=== PATIENT | male | born 1970 | race Caucasian/White ===

== ENCOUNTER → 2019-11-28 16:23 | Outpatient (CLI) | payer OTHER, SELFPAY ==
[2019-11-28 18:39] LABS: ALB/GLOB Ratio 0.9 RATIO (0.9-2.4); AST(SGOT) 62 U/L (15-37); Alanine Aminotransfer ALT/SGPT 75 U/L (16-61); Albumin, Serum 3.5 g/dL (3.2-5.0); Alkaline Phosphatase 89 U/L (45-117); Anion Gap 7 (5-15); BUN 11 mg/dL (7-18); BUN/Creat Ratio 13.2 RATIO (10-20); Calcium,Total 8.6 mg/dL (8.5-10.1); Chloride 104 mmol/L (98-107); Creatinine, Serum 0.84 mg/dL (0.70-1.30); EST Glomerular Filtration Rate 105 mL/min (>60); Est Glom Filt Rate - Afr Amer 127 mL/min (>60); Globulin 3.8 g/dL (2.2-4.2); Glucose 95 mg/dL (74-106); Potassium 3.6 mmol/L (3.5-5.1); Protein, Total 7.3 g/dL (6.4-8.2); Sodium Level 136 mmol/L (136-145)
== END ==
PROVIDERS: PCP Family Medicine; Visit Provider Family Medicine
DX: F10.10 Alcohol abuse, uncomplicated (principal)
CPT/HCPCS: 36415; 80053

== ENCOUNTER → 2022-03-15 | Outpatient (CLI) | payer OTHER, SELFPAY ==
[2022-03-15 19:23] LABS: AST(SGOT) 27 U/L (15-37); Alanine Aminotransfer ALT/SGPT 51 U/L (16-61); Albumin, Serum 3.5 g/dL (3.2-5.0); Alkaline Phosphatase 81 U/L (45-117); Anion Gap 10 (5-15); BUN 10 mg/dL (7-18); BUN/Creat Ratio 9.4 RATIO (10-20); Bilirubin, Direct 0.15 mg/dL (0.00-0.30); Calcium,Total 8.8 mg/dL (8.5-10.1); Chloride 99 mmol/L (98-107); Cholesterol 192 mg/dL (200); Creatinine, Serum 1.06 mg/dL (0.70-1.30); EST Glomerular Filtration Rate 79 mL/min (>60); Est Glom Filt Rate - Afr Amer 95 mL/min (>60); Globulin 3.7 g/dL (2.2-4.2); Glucose 197 mg/dL (74-106); High Density Lipoprotein 58 mg/dL; Potassium 3.9 mmol/L (3.5-5.1); Protein, Total 7.2 g/dL (6.4-8.2); Sodium Level 133 mmol/L (136-145); Triglycerides 311 mg/dL; Very Low Density Lipoprotein 62 mg/dL (5-40)
== END | disposition home or self-care (01) ==
LOC: MFPLAB 15:27
PROVIDERS: PCP Family Medicine; Visit Provider Family Medicine
DX: I10 Essential (primary) hypertension (principal); R79.89 Other specified abnormal findings of blood chemistry
CPT/HCPCS: 36415; 80048; 80061; 80076

== ENCOUNTER 2023-05-21 22:25 | Emergency (ER) | payer OTHER, SELFPAY ==
[2023-05-21 22:27] VITALS: BP 128/87; PULSE 73; RESP 30; TEMP -17.7; TEMP 0; O2SAT 94
[2023-05-21] MEDS: Etomidate 20 MG/10 ML Vial IV (22:32)
[2023-05-21] MEDS: Succinylcholine Chloride 200 MG/10 ML SYRINGE 100 MG IV (22:34)
--- NOTE | 2023-05-21 22:36 | EKG12_ITS ---
Test Reason : Blood Pressure : / mmHG Vent. Rate : 070 BPM Atrial Rate : 070 BPM P-R Int : 182 ms QRS Dur : 090 ms QT Int : 394 ms P-R-T Axes : 065 -14 020 degrees QTc Int : 425 ms Normal sinus rhythm Inferior infarct , age undetermined Abnormal ECG Confirmed by PURNIMA SIMMONS, PRANAV ([id number]), editor farm journal DORINA ABREU ([id number]) on 05/24/2023 9:33:16 AM Referred By: Confirmed By:PRANAV FELTON MD
--- NOTE | 2023-05-21 22:37 | CT_ITS ---
EXAM: CT CHEST, ABDOMEN AND PELVIS WITH INTRAVENOUS CONTRAST CLINICAL INDICATION: trauma -- TRAUMA ONLY: IV Contrast. Dont wait for creatinine TECHNIQUE: Helically acquired images were obtained of the chest, abdomen and pelvis with intravenous contrast. This CT exam was performed using one or more of the following dose reduction techniques: automated exposure control, adjustment of the mA and/or kV according to patient size, and/or use of iterative reconstruction technique. CONTRAST: 100 ML ISOVUE 370 RADIATION DOSE: CTDIvol = 25.94 mGy, DLP = 2452.22 mGy-cm COMPARISON: No relevant prior studies available. FINDINGS: CHEST: LUNGS AND PLEURAL SPACES: Bibasilar dependent atelectasis. No mass. No pleural effusion or thickening. No pneumothorax. No pulmonary contusion. HEART: Mild cardiomegaly. No pericardial effusion. MEDIASTINUM: Unremarkable. No mediastinal or hilar adenopathy. Esophagus is unremarkable. No hiatal hernia. No mediastinal hematoma. THYROID: Unremarkable. No thyroid lesions. ABDOMEN: LIVER: Hepatomegaly. GALLBLADDER AND BILE DUCTS: Unremarkable. No calcified gallstones. No gallbladder distention or wall edema. No intra- or extrahepatic biliary ductal dilation. PANCREAS: Unremarkable. No focal cystic or solid mass. SPLEEN: Unremarkable. Normal size without focal cystic or solid mass. ADRENALS: Unremarkable. No nodules. KIDNEYS AND URETERS: Unremarkable. Normal renal size and position. No hydronephrosis. STOMACH AND BOWEL: Unremarkable. No stomach or bowel distention. No focal inflammatory change. PELVIS: APPENDIX: No evidence of acute appendicitis. BLADDER: Vasquez catheter in the bladder. REPRODUCTIVE: Unremarkable as visualized. No mass. CHEST, ABDOMEN and PELVIS: INTRAPERITONEAL SPACE: Unremarkable. No free air. No hemoperitoneum. RETROPERITONEAL SPACE: Unremarkable. No blood in the retroperitoneum. BONES/JOINTS: Unremarkable. No suspicious lytic or blastic abnormality. No fracture. SOFT TISSUES: Unremarkable. No discrete abdominal or pelvic wall hernia. VASCULATURE: Unremarkable. Aorta is non-dilated. No aortic dissection. No obvious central pulmonary embolism although this study was not performed with the pulmonary embolism protocol. No aortic injury. LYMPH NODES: Unremarkable. No enlarged lymph nodes. TUBES, LINES AND DEVICES: Endotracheal tube with tip extending into the origin of the left mainstem bronchus. Enteric tube extending into the stomach. CT/CT Chest, Abd, Pel w/Contrast IMPRESSION: 1. Endotracheal tube with tip extending into the origin of the left mainstem bronchus. Consider pulling back 3 to 4 cm. 2. No acute injuries identified in the chest abdomen or pelvis. Electronically Signed: Chuck Clayton MD at 23:34 EST ,
--- NOTE | 2023-05-21 22:37 | CT_ITS ---
We are attempting to reach an attending provider to discuss findings. An addendum with communication details will be sent when the communication is complete. EXAM: CT HEAD WITHOUT INTRAVENOUS CONTRAST CLINICAL INDICATION: Trauma TECHNIQUE: Multiple axial images were obtained of the head without intravenous contrast. This CT exam was performed using one or more of the following dose reduction techniques: automated exposure control, adjustment of the mA and/or kV according to patient size, and/or use of iterative reconstruction technique. RADIATION DOSE: CTDIvol = 44.99 mGy, DLP = 914.22 mGy-cm COMPARISON: No relevant prior studies available. FINDINGS: BRAIN AND EXTRA-AXIAL SPACES: Acute subdural hematoma overlying the right cerebral hemisphere measuring up to 1.6 cm in thickness. There is associated mass effect causing 9 mm midline shift to the left. Early dilation of the left lateral ventricle consistent with entrapment. There is also subarachnoid hemorrhage collecting in the basilar cisterns and the left sylvian fissure primarily. No evidence of acute infarct. There is preservation of the jason/white matter interface. Posterior fossa structures are unremarkable. No hydrocephalus. BONES/JOINTS: Unremarkable. No discrete lytic or blastic abnormalities. SOFT TISSUES: Left parietal scalp swelling. SINUSES: Mild ethmoid and sphenoid sinus disease. MASTOID AIR CELLS: Unremarkable. Clear. ORBITS: Visualized globes, extraocular muscles, optic nerves and retrobulbar fat appear unremarkable. CT/Brain/Head without Contrast IMPRESSION: 1. Acute subdural hematoma overlying the right cerebral hemisphere measuring up to 1.6 cm in thickness. 2. There is associated mass effect causing 9 mm midline shift to the left. Early dilation of the left lateral ventricle consistent with entrapment. 3. There is also subarachnoid hemorrhage collecting in the basilar cisterns and the left sylvian fissure primarily. Electronically Signed: Chuck Clayton MD at 23:32 EST ,
--- NOTE | 2023-05-21 22:37 | CT_ITS ---
EXAM: CT CERVICAL SPINE WITHOUT INTRAVENOUS CONTRAST CLINICAL INDICATION: Trauma TECHNIQUE: Helically acquired images were obtained of the cervical spine without intravenous contrast. 2D reformatted images were reviewed. This CT exam was performed using one or more of the following dose reduction techniques: automated exposure control, adjustment of the mA and/or kV according to patient size, and/or use of iterative reconstruction technique. RADIATION DOSE: CTDIvol = 29.43 mGy, DLP = 641.19 mGy-cm COMPARISON: No relevant prior studies available. FINDINGS: VERTEBRAE: Unremarkable. No fracture. No traumatic subluxation. No discrete lytic or blastic abnormality. Normal alignment. Normal craniocervical junction and cervicothoracic junction. DISCS/SPINAL CANAL/NEURAL FORAMINA: Degenerative changes of the intervertebral discs. No critical stenosis. SOFT TISSUES: Unremarkable. No prevertebral soft tissue swelling. LYMPH NODES: Unremarkable. No cervical adenopathy. LUNG APICES: Unremarkable as visualized. Clear. CT/Spine Cervical without Contras IMPRESSION: 1. No acute injuries identified involving the cervical spine. 2. Degenerative changes. Electronically Signed: Chuck Clayton MD at 23:35 EST ,
--- NOTE | 2023-05-21 22:38 | ED.RN ---
Pt lifting arms and attempting to pull at lines with potential to pull out et tube, etc., restraints applied.
[2023-05-21 22:42] VITALS: BP 132/87; PULSE 73; RESP 12; O2SAT 97
[2023-05-21 22:43] LABS: Absolute Lymphocyte Count 5.39 X10^3/uL (0.83-4.51); Absolute Neutrophil Count 6.5 X10^3/uL (2.0-7.7); Basophil# 0.17 X10^3/uL; Basophil% 1.3 % (0-1); Eosinophil# 0.26 X10^3/uL; Eosinophils% 1.9 % (0-5); Hematocrit 41.2 % (40-54); Hemoglobin 13.5 g/dL (13.0-16.5); Lymphocyte # 5.39 X10^3/ul (0.83-4.51); Mean Corp Hgb Conc 32.8 g/dL (32-36); Mean Corpuscular Hgb 28.7 pg (27.0-32.0); Mean Corpuscular Volume 87.7 fL (80-94); Mean Platelet Vol. 7.9 fl (6.2-12.0); Monocyte# 0.89 X10^3/uL; Monocyte% 6.6 % (0-10); NRBC Flagged by Analyzer 0 % (0-5); Neutrophil # 6.46 X10^3/uL (2.7-7.7); POSITIVE DIFFERENTIAL YES; POSITIVE MORPHOLOGY YES; Platelet Count 394 K/mm3 (150-450); RBC Distribution Width CV 12.7 % (11.6-14.6); White Blood Count 13.5 K/mm3 (4.4-11.0)
--- NOTE | 2023-05-21 22:43 | EDS_ITS ---
HPI HPI - Fall History of Present Illness Chief Complaint: Fall Informant: patient Occured/Mechanism Occurred: Today Narrative Narrative: Patient presents after a fall down 15 steps. Friends report he came over and was intoxicated. They heard a loud noise and found him lying at the bottom of the basement steps. He was lying facedown on EMS arrival with blood coming from his nose. He had snoring respirations throughout their transport. His O2 sat was initially 88% and in the low to mid 90s on a nonrebreather. [facility] Medical History (Updated 05/21/23 @ 23:[address] Consuelo Fallon MD) Borderline diabetes Hypertension Obstructive sleep apnea Home Medications amlodipine 10 mg tablet 10 mg PO DAILY 05/21/23 [History Last Taken Unknown] lisinopril 40 mg tablet 40 mg PO DAILY 05/21/23 [History Last Taken Unknown] Allergy/AdvReac Type Severity Reaction Status Date / Time No Known Allergies Allergy Verified 05/21/23 23:31 Social History Smoking Status: Current every day smoker tobacco type: cigarettes ROS ROS ED Review of Systems ROS Unobtainable: due to endotracheal tube and due to mental status EXAM Physical Exam Const Vital Signs: 05/21/23 22:27 05/21/23 22:36 05/21/23 22:42 Temperature 0 F L Temperature Source Temporal Pulse Rate 73 73 Respiratory Rate 30 H 12 Respiratory Pattern Tachypnea Blood Pressure 128/87 H 132/87 H Blood Pressure Mean 100 102 Pulse Ox 94 97 Oxygen Delivery Method Non-Rebreather Mechanical Ventilator Fraction of Inspired Oxygen (FIO2) 05/21/23 22:30 05/21/23 23:00 05/21/23 23:15 Temperature Temperature Source Pulse Rate 80 72 Respiratory Rate 14 17 Respiratory Pattern Tachypnea Blood Pressure 116/81 H Blood Pressure Mean 92 Pulse Ox 97 99 Oxygen Delivery Method Non-Rebreather Mechanical Ventilator Fraction of Inspired Oxygen (FIO2) 60 05/22/23 00:30 05/21/23 23:30 05/22/23 00:00 Temperature Temperature Source Pulse Rate 72 82 Respiratory Rate 16 27 H Respiratory Pattern Blood Pressure 120/82 H 96/76 Blood Pressure Mean 94 83 Pulse Ox 100 100 Oxygen Delivery Method Fraction of Inspired Oxygen (FIO2) 50 05/22/23 00:30 Temperature Temperature Source Pulse Rate 78 Respiratory Rate 15 Respiratory Pattern Blood Pressure 120/82 H Blood Pressure Mean 94 Pulse Ox Oxygen Delivery Method Fraction of Inspired Oxygen (FIO2) Positive obese Nutritional Appearance: obese HEENT HEENT Narrative: Small abrasion to the left anabaptism. Blood from the nares bilaterally. Eyes Eyes Narrative: Pupils 2 to 3 mm bilaterally not reactive at this time. Chest Wall inspection of chest normal and palpation of chest normal Resp normal respiratory effort Resp Narrative: Transmitted upper airway sounds. Cardio regular rate and regular rhythm GI non-tender Palpation: soft Neuro Neuro Narrative: Patient with spontaneous respirations. He will move the right upper extremity. He does not withdraw lower extremities or left upper extremity to painful stimulus. Skin Skin Narrative: Abrasion to left anabaptism. MDM MDM MDM Narrative Medical decision making narrative: Second IV line initiated on patient arrival. Patient given 20 mg of IV etomidate and intubated on first attempt with glide scope. Tube visualized passing through cords and good fogging noted in the tube. Good color change noted with bilateral breath sounds. No air noted over the Epigastrium. Trauma orders initiated. I discussed the patient's condition with family. [facility] are on diversion to trauma at this time and we are attempting to contact [facility] in [place]. Lab Data Attestation: I reviewed the patient's lab results. Labs: Laboratory Results - last 24 hr 05/21/23 05/21/23 22:30 22:45 WBC 13.5 H RBC 4.70 Hgb 13.5 Hct 41.2 MCV 87.7 MCH 28.7 MCHC 32.8 RDW Std Deviation 41.0 RDW Coeff of [place] 12.7 Plt Count 394 MPV 7.9 Immature Gran % (Auto) 2.200 H Neut % (Auto) 48.0 Lymph % (Auto) 40.0 [place] % (Auto) 6.6 Eos % (Auto) 1.9 Baso % (Auto) 1.3 H Absolute Neuts (auto) 6.5 Absolute Lymphs (auto) 5.39 H Nucleated RBC % 0 Differential Comment SEE COMMENT Atypical Lymphocytes 1+ Reactive Lymphocytes RARE Platelet Estimate ADEQUATE RBC Morphology N CHROM Anisocytosis RARE PT 12.5 INR 0.9 APTT 27.2 Sodium 135 L Potassium 3.2 L Chloride 101 Carbon Dioxide 22.0 Anion Gap 12 BUN 12 Creatinine 0.86 Estim Creat Clear Calc 0.00 Est GFR (MDRD) Af Amer 121 Est GFR (MDRD) Non-Af 100 BUN/Creatinine Ratio 14.0 Glucose 164 H Calcium 8.5 Total Bilirubin 0.10 L Direct Bilirubin 0.07 AST 31 ALT 47 Alkaline Phosphatase 82 Total Creatine Kinase 189 Total Protein 7.2 Albumin 3.6 Globulin 3.6 Triglycerides 197 Urine Opiates Screen NEGATIVE Urine Methadone Screen NEGATIVE Ur Barbiturates Screen NEGATIVE Ur Phencyclidine Scrn NEGATIVE Ur Amphetamines Screen NEGATIVE MDMA (Ecstasy) Screen NEGATIVE U Benzodiazepines Scrn NEGATIVE Urine Cocaine Screen NEGATIVE U Cannabinoids Screen POSITIVE H Ur Drug Screen Comment Ethyl Alcohol 262.0 Radiography Diagnostic Testing: Clinical Impression(s) from Imaging Studies Brain CT 05/21/23 22:37 IMPRESSION: 1. Acute subdural hematoma overlying the right cerebral hemisphere measuring up to 1.6 cm in thickness. 2. There is associated mass effect causing 9 mm midline shift to the left. Early dilation of the left lateral ventricle consistent with entrapment. 3. There is also subarachnoid hemorrhage collecting in the basilar cisterns and the left sylvian fissure primarily. Electronically Signed: Chuck Clayton MD at 23:32 EST Reading Location ID and State: [facility] / [place] Tel , Service support , ADDENDUM: 05/21/23 2344 IMPRESSION: 1. Acute subdural hematoma overlying the right cerebral hemisphere measuring up to 1.6 cm in thickness. 2. There is associated mass effect causing 9 mm midline shift to the left. Early dilation of the left lateral ventricle consistent with entrapment. 3. There is also subarachnoid hemorrhage collecting in the basilar cisterns and the left sylvian fissure primarily. N.B. : The above Results were Read Back by Chuck Clayton MD to Dr. Consuelo Fallon MD, and understanding confirmed on 05/21/2023 23:37:22 (ET). Electronically Signed: Chuck Clayton MD at 23:32 EST , Cervical Spine CT 05/21/23 22:37 IMPRESSION: 1. No acute injuries identified involving the cervical spine. 2. Degenerative changes. Electronically Signed: Chuck Clayton MD at 23:35 EST , Chest/Abdomen/Pelvis CT 05/21/23 22:37 IMPRESSION: 1. Endotracheal tube with tip extending into the origin of the left mainstem bronchus. Consider pulling back 3 to 4 cm. 2. No acute injuries identified in the chest abdomen or pelvis. Electronically Signed: Chuck Clayton MD at 23:34 EST , EKG Initial EKG: Attestation: I personally reviewed and interpreted this EKG as follows: Interpretation: Sinus Rhythm (Sinus at 70 with no acute ischemia.) Treatment and Re-Evaluation Narrative: CBC was white count elevated at 13.5 with normal differential. Hemoglobin normal at 13.5. Coags unremarkable. Chemistry studies normal. LFTs normal. Total CK is 189. EtOH is 262. EKG is sinus rhythm with no acute ischemia. Patient sent for CT scan of the head, C-spine, chest, abdomen, and pelvis. CT scan of the head reveals acute subdural hematoma overlying the right cerebral hemisphere measuring up to 1.6 cm in thickness. There is an associated mass effect causing 9 mm midline shift to the left. Early dilation of the left lateral ventricle consistent with entrapment noted. There is also a subarachnoid hemorrhage collecting in the basilar cisterns in the left sylvian fissure. CT scan of the C-spine reveals no fracture. CT scan of the chest, abdomen, and pelvis reveals endotracheal tube with the tip in the origin of the left mainstem bronchus. No acute injuries identified in the chest, abdomen, or pelvis. Patient has been given IV Keppra. Head of bed is elevated his respiratory rate was slightly increased on the ventilator. He has not required sedation at this time. Patient has been accepted at [facility] and we are awaiting ground critical care transport for transfer. We received a call back from [facility] transport. They stated that after calling around it appears [facility] is open to trauma. I spoke with the trauma surgeon there and she has accepted the patient in transfer. [facility] will still transport but transport time will be faster to [place] for definitive treatment. We did discuss the patient's findings. She did request 500 mL of 3% saline be given given his CT head findings. Patient's vital signs have remained stable while in the emergency room. Critical Care Time Critical Care Time: Yes Critical care time (excluding procedures): 30-74 minutes (45 minutes), Discussing w/Patient &/or Family/Director Market Intelligence, Discussing w/Consultants, Arranging Admission or Transfer and Performing Direct Patient Care at Bedside Discharge Plan Triage Chief Complaint: Fall ED Provider: Consuelo Fallon Dx/Rx/DC Orders Clinical Impression: Alcohol intoxication, Respiratory failure, Subdural hemorrhage, Fall Prescriptions: No Action amlodipine 10 mg tablet 10 mg PO DAILY Patient Comments: take 1 tablet by mouth once daily lisinopril 40 mg tablet 40 mg PO DAILY Patient Comments: take 1 tablet by mouth once daily Primary Care Provider: Fernando Davila Referrals: Fernando Davila MD [Primary Care Provider] - Disposition Disposition: Acute Care Hospital Discharge Location: [facility]
[2023-05-21 22:56] LABS: International Normalized Ratio 0.9; Prothrombin Time (Protime)PT. 12.5 SECONDS (11.7-14.9)
[2023-05-21 22:57] LABS: Partial Thromboplast Time 27.2 Seconds (24.1-36.2)
[2023-05-21 22:59] LABS: Differential Indicated SCAN CRITERIA MET
[2023-05-21 23:00] VITALS: PULSE 80; RESP 14; O2SAT 97
[2023-05-21 23:00] LABS: AST(SGOT) 31 U/L (15-37); Alanine Aminotransfer ALT/SGPT 47 U/L (16-61); Albumin, Serum 3.6 g/dL (3.2-5.0); Alkaline Phosphatase 82 U/L (45-117); Anion Gap 12 (5-15); BUN 12 mg/dL (7-18); Bilirubin, Direct 0.07 mg/dL (0.00-0.30); Calcium,Total 8.5 mg/dL (8.5-10.1); Chloride 101 mmol/L (98-107); Creatinine, Serum 0.86 mg/dL (0.70-1.30); EST Glomerular Filtration Rate 100 mL/min (>60); Est Glom Filt Rate - Afr Amer 121 mL/min (>60); Globulin 3.6 g/dL (2.2-4.2); Glucose 164 mg/dL (74-106); Potassium 3.2 mmol/L (3.5-5.1); Protein, Total 7.2 g/dL (6.4-8.2); Sodium Level 135 mmol/L (136-145)
[2023-05-21 23:04] LABS: CPK Total, Creatine Kinase 189 U/L (39-308); Triglycerides 197 mg/dL
[2023-05-21] MEDS: levETIRAcetam IV 1,000 MG/100 ML BAG 400 MG IV (23:11)
[2023-05-21] MEDS: 0.9% Normal Saline (1000mL) 1,000 ML 150 ML IV (23:12)
[2023-05-21 23:15] VITALS: BP 116/81; PULSE 72; RESP 17; O2SAT 99
[2023-05-21 23:30] VITALS: BP 120/82; PULSE 72; RESP 16; O2SAT 100
[2023-05-21 23:34] LABS: Atypical Lymphocyte 1+ %
[2023-05-21 23:35] LABS: Anisocytosis RARE; Platelet Estimate ADEQUATE (ADEQ); Reactive Lymphocyte RARE; Red Cell Morphology N CHROM NORMAL (NORM C&C)
[2023-05-22] VITALS: BP 96/76; PULSE 82; RESP 27; O2SAT 100
[2023-05-22] MEDS: Propofol 10MG/Ml 1,000 MG/100 ML Bottle 7.59999999999999964 MG CONT INF (00:05)
[2023-05-22 00:12] LABS: Amphetamine Urine VISTA NEGATIVE (<1000 ng/mL); Barbiturate Urine VISTA NEGATIVE (< 200 ng/mL); Benzodiazepine Urine VISTA NEGATIVE (< 200 ng/mL); Cocaine Urine VISTA NEGATIVE (< 300 ng/mL); Ecstacy Urine VISTA NEGATIVE (< 500 ng/mL); Methadone Urine VISTA NEGATIVE (< 300 ng/mL); PCP Urine VISTA NEGATIVE (< 25 ng/mL); THC Urine VISTA POSITIVE (< 50 ng/mL); Vista UDS pH Range 5
[2023-05-22] MEDS: Diphth,Pertuss(Acell),Tet Vac 0.5 ML Vial IM (00:21)
[2023-05-22] MEDS: Sodium Cl 3% 500 ML 999 ML IV (00:23)
[2023-05-22 00:30] VITALS: BP 120/82; PULSE 78; RESP 15
[2023-05-22 01:00] VITALS: BP 121/78; PULSE 83; RESP 16; O2SAT 100
[2023-05-22] MEDS: Propofol 10MG/Ml 1,000 MG/100 ML Bottle 15.3000000000000007 MG CONT INF (01:53)
--- NOTE | 2023-05-22 01:56 | ED.RN ---
Propofol continued on transport, additional bottle given to squad for infusion during transport.
== END 2023-05-22 02:00 | disposition short-term general hospital (02) ==
PROVIDERS: Emergency Provider Emergency Medicine; PCP Family Medicine; Visit Provider Emergency Medicine
DX: S06.5XAA Traumatic subdural hemorrhage with loss of consciousness status unknown, initial encounter (principal); F10.129 Alcohol abuse with intoxication, unspecified; J96.90 Respiratory failure, unspecified, unspecified whether with hypoxia or hypercapnia; F17.210 Nicotine dependence, cigarettes, uncomplicated; W10.9XXA Fall (on) (from) unspecified stairs and steps, initial encounter; Y92.89 Other specified places as the place of occurrence of the external cause; I10 Essential (primary) hypertension; Z79.899 Other long term (current) drug therapy; Y90.8 Blood alcohol level of 240 mg/100 ml or more
CPT/HCPCS: 31500; 31720; 51702; 70450; 71260; 72125; 74177; 80048; 80076; 80307; 80320; 82550; 84478; 85025; 85610; 85730; 90715; 93005; 94002; 96365; 96366; 96368; 96375; 99252; 99285; J7030; Q9967; A4216; G0463; G0480

== ENCOUNTER → 2023-11-09 | Outpatient (CLI) | payer OTHER, SELFPAY ==
[2023-11-09 17:42] LABS: Hematocrit 44.9 % (40-54); Mean Corp Hgb Conc 31.2 g/dL (32-36); Mean Corpuscular Hgb 25.4 pg (27.0-32.0); Mean Corpuscular Volume 81.5 fL (80-94); Mean Platelet Vol. 8.3 fl (6.2-12.0); Platelet Count 461 K/mm3 (150-450); RBC Distribution Width CV 17.7 % (11.6-14.6); RBC Distribution Width SD 50.4 fl (35.1-43.9); Red Blood Count 5.51 M/mm3 (4.6-6.2); White Blood Count 9.6 K/mm3 (4.4-11.0)
[2023-11-09 17:49] LABS: Vitamin B12 702 pg/mL (211-911); Vitamin D,25 Hydroxy 21.7 ng/mL
[2023-11-09 18:00] LABS: AST(SGOT) 20 U/L (15-37); Alanine Aminotransfer ALT/SGPT 26 U/L (16-61); Albumin, Serum 3.9 g/dL (3.2-5.0); Alkaline Phosphatase 84 U/L (45-117); Anion Gap 9 (5-15); BUN 10 mg/dL (7-18); BUN/Creat Ratio 12.9 RATIO (10-20); Calcium,Total 9.1 mg/dL (8.5-10.1); Chloride 105 mmol/L (98-107); Creatinine, Serum 0.77 mg/dL (0.70-1.30); EST Glomerular Filtration Rate 113 mL/min (>60); Est Glom Filt Rate - Afr Amer 136 mL/min (>60); Globulin 3.9 g/dL (2.2-4.2); Glucose 109 mg/dL (74-106); Protein, Total 7.8 g/dL (6.4-8.2); Sodium Level 138 mmol/L (136-145)
[2023-11-11 12:09] LABS: GGTP 29 IU/L (0-65)
== END | disposition home or self-care (01) ==
LOC: MFPLAB 14:52
PROVIDERS: PCP Family Medicine; Visit Provider Family Medicine
DX: Z78.9 Other specified health status (principal)
CPT/HCPCS: 36415; 80053; 82306; 82607; 82977; 85027